=== PATIENT | female | born 1935 | race Caucasian/White ===

== ENCOUNTER 2017-05-29 08:02 | Outpatient (CLI) | payer OTHER, BC ==
[~2017-05-29 08:02] MED LIST: BAYER ASPIRIN325 MG PO; CEFADROXIL500 MG PO; PERCOCET 5/3251 TAB PO
== END 2017-05-29 08:32 | disposition home or self-care (01) ==
LOC: LAB 08:02
DX: R19.5 Other fecal abnormalities (principal)

== ENCOUNTER 2017-07-17 07:19 | Outpatient (CLI) | payer OTHER, BC | END 2017-07-17 07:26 | disposition home or self-care (01) | LOC: LAB 07:19 | DX: R19.5 Other fecal abnormalities (principal) ==

== ENCOUNTER 2017-07-17 07:40 | Outpatient (CLI) | payer OTHER, BC | END 2017-07-17 17:00 | disposition home or self-care (01) | LOC: RAD 07:40 | DX: R19.5 Other fecal abnormalities (principal); K30 Functional dyspepsia ==

== ENCOUNTER 2017-09-20 10:44 | Emergency (ER) | payer OTHER, BC ==
[~2017-09-20] VITALS: Ht 162.6 cm; Wt 56.7 kg
[2017-09-20] MEDS ORDERED: LEVAQUIN500 MG PO (11:55)
== END 2017-09-20 12:33 | disposition home or self-care (01) ==
LOC: ER 10:44
DX: S51.022A Laceration with foreign body of left elbow, initial encounter (principal); W45.8XXA Other foreign body or object entering through skin, initial encounter; Y93.89 Activity, other specified; Y92.488 Other paved roadways as the place of occurrence of the external cause; Y99.8 Other external cause status

== ENCOUNTER 2020-02-17 17:05 | Emergency (ER) | payer OTHER, BC ==
[~2020-02-17] VITALS: Ht 162.6 cm; Wt 54.4 kg
[~2020-02-17 17:05] MED LIST changes: +LEVAQUIN500 MG PO
[2020-02-17] MEDS ORDERED: ELIQUIS2.5 MG (17:41)
== END 2020-02-17 19:09 | disposition home or self-care (01) ==
LOC: ER 17:05
DX: B34.9 Viral infection, unspecified (principal); Z20.828 Contact with and (suspected) exposure to other viral communicable diseases

== ENCOUNTER → 2020-06-15 | Outpatient (CLI) | payer OTHER, BC ==
[~2020-06-15] MED LIST changes: +ELIQUIS2.5 MG
== END | disposition home or self-care (01) ==
LOC: TOM 10:18
PROVIDERS: ATTEND General Practice
DX: Q61.01 Congenital single renal cyst (principal); R10.11 Right upper quadrant pain

== ENCOUNTER → 2020-11-17 10:48 | Outpatient (CLI) | payer OTHER, BC ==
[~2020-11-17 10:48] MED LIST changes: +DICLOFENAC POTA50 MG PO
== END | disposition home or self-care (01) ==
LOC: MRI 10:48
PROVIDERS: ATTEND Obstetrics & Gynecology Maternal & Fetal Medicine
DX: M25.551 Pain in right hip (principal)
CPT/HCPCS: 73218

== ENCOUNTER 2021-03-23 14:19 | Outpatient (CLI) | payer OTHER, BC | END 2021-03-23 14:29 | disposition home or self-care (01) | LOC: MRI 14:19 | PROVIDERS: ATTEND Obstetrics & Gynecology Maternal & Fetal Medicine | DX: I67.89 Other cerebrovascular disease (principal); R41.3 Other amnesia | CPT/HCPCS: 70551 ==